=== PATIENT | male | born 1955 | race Caucasian/White ===

== ENCOUNTER 2022-02-12 12:51 | Observation (INO) | payer OTHER, SELFPAY ==
[2022-02-12] VITALS (28 sets, daily range): BP systolic 153–192; BP diastolic 66–120; PULSE 65–93; RESP 12–20; TEMP 36.7–37.2; O2SAT 82–100; BMI 31.6
--- NOTE | ~2022-02-12 | XR_ITS ---
EXAMINATION: XR chest 1V portable DATE: 02/12/2022 13:55 INDICATION: Cough. Syncope. TECHNIQUE: A single frontal view of the chest was obtained. COMPARISON: None. FINDINGS: The chest demonstrates clear lungs without pneumonia, pleural effusion, or pneumothorax. Th e heart size is normal. IMPRESSION: 1. No acute cardiopulmonary disease. Reviewed, dictated and finalized at location A.
--- NOTE | ~2022-02-12 | US_ITS ---
EXAMINATION: US carotid duplex BI DATE: 02/13/2022 10:10 INDICATION: Syncope. TECHNIQUE: Grayscale, color Doppler, and pulsed Doppler images of the cervical carotid arteries were obtained. The degree of vessel stenosis is placed in one of the following categories: normal, <50%, 5 0-69%, >=70% but less than near-occlusion, near-occlusion, or total occlusion. Note that percent sten osis relative to normal distal artery lumen diameter is indirectly measured from velocity measurement s as described by Mike, et al. Radiology 2003; 229:340-346. COMPARISON: None. FINDINGS: RIGHT: The right common carotid artery (CCA) peak systolic velocity (PSV) is 122 cm/s. The right internal ca rotid artery (ICA) PSV is 194 cm/s. The right ICA end-diastolic velocity (EDV) is 57 cm/s. The right ICA/CCA PSV ratio is 1.6. Grayscale and color Doppler images yield an estimate of >=50% diameter redu ction from plaque in the ICA. There is antegrade flow in the right vertebral artery. LEFT: The left CCA PSV is 168 cm/s. The left ICA PSV is 140 cm/s. The left ICA EDV is 20 cm/s. The left ICA /CCA PSV ratio is <1. Grayscale and color Doppler images yield an estimate of >=50% diameter reductio n from plaque in the ICA. There is antegrade flow in the left vertebral artery. IMPRESSION: 1. 50-69% stenosis in the right internal carotid artery. 2. 50-69% stenosis in the left internal carotid artery. Reviewed, dictated and finalized at location A.
--- NOTE | ~2022-02-12 | CT_ITS ---
EXAMINATION: CT brain wo con DATE: 02/12/2022 14:10 INDICATION: Syncope. Head injury. Headache. TECHNIQUE: Computed tomography (CT) of the head was performed without intravenous contrast. The mA wa s adjusted according to patient size. Iterative reconstruction technique was employed. The dose-lengt h product was 605.33 mGy-cm. COMPARISON: None FINDINGS: There are scattered areas of low attenuation in the cerebral white matter, which is within normal limits for the patient's age. There is no intracranial hemorrhage, acute infarction, or abnorm al intracranial mass lesion. The ventricles are normal in size. There is mild mucosal thickening in t he paranasal sinuses. The mastoid air cells are normal. There is cerumen in the external auditory can als. There are likely changes of ocular lens replacement surgeries. IMPRESSION: 1. Normal aging brain. Reviewed, dictated and finalized at location A. IMPRESSION: 1. Normal aging brain.
--- NOTE | ~2022-02-12 | CT_ITS ---
EXAMINATION: CT cervical spine wo con DATE: 02/12/2022 14:12 INDICATION: Head injury. TECHNIQUE: Computed tomography (CT) of the cervical spine was performed without intravenous contrast. Automated exposure control and iterative reconstruction technique were employed. The dose-length pro duct was 553.69 mGy-cm. COMPARISON: None FINDINGS: There is 5 degrees levocurvature of cervical spine. Vertebral body heights and intervertebr al disc heights are normal. The following disc levels are specifically discussed: C2-C3: There is mild left uncovertebral joint osteoarthritis. There is mild bilateral facet joint ost eoarthritis. There is no neural foraminal stenosis. There is no central canal stenosis. C3-C4: There is mild bilateral uncovertebral joint osteoarthritis. There is no facet joint osteoarthr itis. There is no neural foraminal stenosis. There is no central canal stenosis. C4-C5: There is mild bilateral uncovertebral joint osteoarthritis. There is mild bilateral facet join t osteoarthritis. There is mild bilateral neural foraminal stenosis. There is mild central canal sten osis. C5-C6: There is mild bilateral uncovertebral joint osteoarthritis. There is no facet joint osteoarthr itis. There is mild right neural foraminal stenosis. There is mild central canal stenosis. C6-C7: There is no uncovertebral joint osteoarthritis. There is mild bilateral facet joint osteoarthr itis. There is no neural foraminal stenosis. There is no central canal stenosis. C7-T1: There is no uncovertebral joint osteoarthritis. There is mild bilateral facet joint osteoarthr itis. There is no neural foraminal stenosis. There is no central canal stenosis. IMPRESSION: 1. No fracture. 2. Mild cervical spondylosis. Reviewed, dictated and finalized at location A.
--- NOTE | 2022-02-12 12:59 | ECG_ITS ---
Measurements Intervals [place] Rate: 68 P: 57 AR: 167 QRS: -83 QRSD: 171 T: 116 QT: 440 QTc: 470 Interpretive Statements SINUS RHYTHM POSSIBLE LEFT ATRIAL ENLARGEMENT RIGHT BUNDLE BRANCH BLOCK LEFT ANTERIOR FASCICULAR BLOCK ANTEROSEPTAL INFARCT, AGE INDETERMINATE INFERIOR INFARCT, AGE INDETERMINATE ST-T WAVE ABNORMALITY IN HIGH LATERAL LEADS- CONSIDER ISCHEMIA ABNORMAL ECG NO PREVIOUS ECG AVAILABLE FOR COMPARISON Electronically Signed On 02-12-2022 13:46:07 CDT by Berto Painting D.O.
[2022-02-12 13:07] LABS: Basophils Absolute Auto 0.1 K/mm3 (0.0-0.1); Basophils Percent Auto 0.6 % (0.2-1.2); Eosinophils Absolute Auto 0.5 K/mm3 (0-0.3); Eosinophils Percent Auto 3.8 % (0-4.4); Hematocrit 44.9 % (42.0-52.0); Hemoglobin 14.6 g/dL (14.0-18.0); Immature Granulocyte Absolute 0.07 K/mm3 (0.00-0.031); Immature Granulocyte Percent A 0.6 % (0-0.5); Lymphocytes Absolute Auto 1.56 K/mm3 (0.9-3.2); Lymphocytes Percent Auto 12.8 % (18.3-44.2); Mean Corpuscular HGB Conc 32.5 g/dl (32-36); Mean Corpuscular Hemoglobin 28.8 pg (26-34); Mean Corpuscular Volume 88.6 fl (80-100); Mean Platelet Volume 9.9 fl (7.4-10.4); Monocytes Absolute Auto 1.1 K/mm3 (0.1-0.6); Monocytes Percent Auto 8.8 % (2.6-8.5); Neutrophils Percent Auto 73.4 % (45.5-73.1); Platelet Count Result 289 k/mm3 (150-375); Red Blood Count 5.07 M/mm3 (4.6-6.20); White Blood Count 12.2 K/mm3 (4.5-10.0)
[2022-02-12 13:29] LABS: Alanine Aminotransferase 19 U/L (6-50); Albumin Level 3.9 g/dL (3.5-5.1); Alkaline Phosphatase 133 U/L (38-126); Anion Gap 13 mmol/L (8-16); Aspartate Amino Transferase 24 U/L (17-59); Bilirubin,Total 0.4 mg/dL (0.2-1.3); Blood Urea Nitrogen 44 mg/dL (9-20); Calcium 8.5 mg/dL (8.4-10.2); Carbon Dioxide 21 mmol/L (22-30); Chloride 106 mmol/L (98-107); Estimated CRCL calculation 29 ml/min; Estimated Glomerular Filt Rate 20; Glucose 292 mg/dL (65-110); Potassium 6.6 mmol/L (3.4-5.0); Sodium 140 mmol/L (137-145)
[2022-02-12] MEDS: ALBUTEROL SULFATE NEB 2.5 MG/3 ML INH 5 MG INHALATION (13:49)
[2022-02-12] MEDS: SODIUM POLYSTYRENE SULFONONATE 15 GM/60 ML BTL 30 GM PO (13:53)
[2022-02-12] MEDS: CALCIUM GLUC 1,000 MG/NS 100ML 1,000 MG/100 ML BAG 200 MG IVPB (13:54)
[2022-02-12] MEDS: DEXTROSE 50% 25 GM/50 ML SYRINGE IV PUSH (13:54)
[2022-02-12] MEDS: INSULIN HUMAN REGULAR (*BKC) 100 UNITS/ML 10 UNITS IV PUSH (13:55)
[2022-02-12] MEDS: SODIUM BICARBONATE 8.4% 50 MEQ/50 ML SYRINGE IV PUSH (13:55)
[2022-02-12 14:23] LABS: NT Pro B Type Natriuretic Pept 8440 pg/mL (5-100); Troponin I 0.063 ng/mL (0.000-0.034)
[2022-02-12 14:29] LABS: SARS-CoV-2 RNA PCR Negative
[2022-02-12] MEDS: SODIUM CHLORIDE 0.9% IV 500 ML 999 ML IV CONT (14:46)
--- NOTE | 2022-02-12 14:59 | ED.SYNCOPE ---
HPI - Syncope General Chief Complaint: Syncope Stated Complaint: syncope with HI Time Seen by Provider: 02/12/22 13:00 Source: patient and RN notes reviewed Mode of arrival: EMS Limitations: no limitations History of Present Illness HPI narrative: This is a 66 year old male with history of hypertension, CAD, chronic kidney disease with hyperkalemia who presents for evaluation of syncopal episode. Patient states he had just gotten out of his car to walk into gas station and he developed cramping in his thighs. He then felt lightheaded and he passed out hitting his head. He reports he has cramping frequently when he has elevated potassium. He denies preceding palpitations, chest pain , nausea or shortness of breath prior to his syncopal episode. He has mild headache and mild neck pain. He denies focal weakness. His codifier is Dr. Bere Issa. He has been off his lasix for 1 week and he states he only takes as needed. He was going to start taking today because he has mild cough for 2 days. He denies leg swellling. Related Data Home Medications Medication Instructions Recorded Confirmed amlodipine 5 mg tablet 5 mg PO BID 02/12/22 02/12/22 aspirin 325 mg tablet 325 mg PO DAILY 02/12/22 02/12/22 atorvastatin 10 mg tablet 10 mg PO DAILY 02/12/22 02/12/22 clonidine HCl 0.2 mg tablet 0.2 mg PO BID 02/12/22 02/12/22 clopidogrel 75 mg tablet 75 mg PO DAILY 02/12/22 02/12/22 furosemide 40 mg tablet 40 mg PO DAILY 02/12/22 02/12/22 isosorbide mononitrate 60 mg 60 mg PO DAILY 02/12/22 02/12/22 tablet,extended release 24 hr nebivolol 20 mg tablet 20 mg PO HS 02/12/22 02/12/22 nitroglycerin 0.4 mg sublingual 0.4 mg sublingual Q5MIN PRN Chest 02/12/22 02/12/22 tablet Pain selenium sulfide 2.5 % lotion 2.5 applic topical DAILY PRN Dry 02/12/22 02/12/22 Skin Allergies Allergy/AdvReac Type Severity Reaction Status Date / Time No Known Allergies Allergy Verified 02/12/22 13:00 Review of Systems Review of Systems: All systems reviewed & are unremarkable except as noted in HPI and below Constitutional: Constitutional: Denies chills, Denies fatigue and Denies fever(s) Eyes: Eyes: Denies change in vision ENT: Denies nasal congestion Cardiovascular: Cardiovascular: Denies chest pain and Denies rapid heart rate Respiratory: Respiratory: Denies chest congestion, Reports cough and Denies dyspnea Gastrointestinal: Gastrointestinal: Denies abdominal pain, Denies nausea and Denies vomiting Musculoskeletal: Musculoskeletal: Reports muscle cramps Neurologic: Reports syncope, Reports headache(s), Denies focal weakness and Denies numbness PMFSH Past Medical History Medical History (Updated 02/12/22 @ 15:16 by Layla Preciado MD) CAD (coronary artery disease) Chronic kidney disease Hyperkalemia Hypertension Surgical History Surgical History (Updated 02/12/22 @ 15:06 by Layla Preciado MD) H/O cardiac catheterization Social History Social History (Updated 02/12/22 @ 15:07 by Layla Preciado MD) Smoking status: Never smoker Alcohol intake: never Substance use: never Spiritual care concerns: No Exam Const: General: no acute distress and alert Nutritional Appearance: well nourished Orientation/consciousness: patient oriented x3 Limitations: no limitations HENMT: Head: normal to inspection Face and sinus: normal facial exam Mouth: Yes Normal oral and palatal mucosa present, Yes lip normal and Yes moist mucous membranes Throat: posterior oropharynx normal Eyes: Pupils: Equal, round and reactive pupils present EOM: EOMs intact bilaterally Neck: Neck: normal visual inspection Chest: Chest palpation & inspection: normal inspection of the chest Resp: Effort & Inspection: normal respiratory effort Auscultation: clear to auscultation bilaterally Cardio: Rate: regular rate Rhythm: regular rhythm Heart sounds: no murmurs GI: GI Palp: Yes Soft to palpation, No Tenderness to pa
[2022-02-12] MEDS: SODIUM CHLORIDE 0.9% IV 1,000 ML 150 ML IV CONT (16:17)
--- NOTE | 2022-02-12 16:28 | PC.NURSE ---
This patient, Reza David, was admitted to IMU Room 200-01. Patient/family oriented to hospital policies and general routines including ID bracelet, bed and alarms, visiting hours, pain management, procedures, bathroom and other care routines, personal items, smoking policy, room service/diet, and visiting hours. Information on how to activate the Rapid Response Team has been discussed. Patient/Family are encouraged to report perceived risks to care and to ask questions if they do not understand what they are told or what they should do.
--- NOTE | 2022-02-12 17:00 | PM.IMHP ---
H&P: HPI History of Present Illness Date/Time: 02/12/22 17:00 Chief Complaint: Syncope. Narrative: This is a very pleasant 66-year-old with chronic kidney disease, hypertension, hyperlipidemia, and coronary artery disease who presented to the emergency department via EMS for evaluation after a syncopal episode. He had been out camping and today he was returning home. He stopped at a local gas station and when he got out of the car he had significant cramping in his thighs which does happen from time to time. He made his way to the station and while walking he started to feel weak, lightheaded, and dizzy. He briefly lost consciousness and fell to the ground, landing on his back and striking the right side of his head on the concrete. It does not sound as though it is unusual for him to have feelings of lightheadedness and dizziness upon going from a seated to standing position however he has never lost consciousness before. In fact just last week he had a similar episode and at that time he checked his blood pressure which was reportedly 90/56 which is very low for him. His vital signs were stable on arrival to the emergency department and his blood pressure has been in the 150s to 180 systolic. Labs done upon arrival were significant for potassium of 6.6, BUN 44, creatinine 3.10, and troponin 0.063. He received appropriate treatment for the hyperkalemia and he is being admitted overnight for closer monitoring. With further questioning he reports having issues with hyperkalemia in the past and his baseline GFR is typically 20 and 21%. He has never been diagnosed with orthostatic hypotension and his blood pressures are typically at the higher end of normal if not more. At the time my evaluation he is resting comfortably and he has been able to get up to the bathroom without any issues. He denies vertigo, focal weakness, paresthesias, visual changes, chest pain, pleuritic pain, shortness a breath, vomiting, diarrhea, and dysuria. Review of Systems Review of Systems: Twelve systems were reviewed and are negative except for as per HPI. [facility] Past Medical History Medical History (Updated 02/12/22 @ 18:19 by Melissa Mortensen PA-C) Cerebrovascular accident (2018) Chronic kidney disease Coronary artery disease Gastroesophageal reflux disease Hyperkalemia Hyperlipidemia Hypertension Obstructive sleep apnea Spinal stenosis Tinea versicolor Transient ischemic attack Vocal cord paralysis Surgical History Surgical History (Updated 02/12/22 @ 18:17 by Melissa Mortensen PA-C) History of cardiac catheterization History of cholecystectomy History of coronary artery stent placement History of renal stent History of vitrectomy Family History Family History Sibling Acute myocardial infarction Multiple sclerosis Mother Diabetes mellitus Hypertension Father Hypertension Congestive heart failure Social History Social History Social History: Surrogate medical decision maker: Cielo David, spouse. Code status: Full code. Smoking status: Never smoker Alcohol intake: never Substance use: never Spiritual care concerns: No Meds Home Medications and Allergies Home Medications Medication Instructions Recorded Confirmed Type amlodipine 5 mg tablet 5 mg PO BID 02/12/22 02/12/22 History aspirin 325 mg tablet 325 mg PO DAILY 02/12/22 02/12/22 History atorvastatin 10 mg tablet 10 mg PO DAILY 02/12/22 02/12/22 History clonidine HCl 0.2 mg tablet 0.2 mg PO BID 02/12/22 02/12/22 History clopidogrel 75 mg tablet 75 mg PO DAILY 02/12/22 02/12/22 History furosemide 40 mg tablet 40 mg PO DAILY 02/12/22 02/12/22 History insulin glargine 100 unit/mL (3 45 unit subcut Q12H 02/12/22 02/12/22 History mL) subcutaneous pen (Lantus Solostar U-100 Insulin) isosorbide mononitrate 60 mg 60 mg PO DAILY 02/12/22
[2022-02-12 17:35] LABS: Anion Gap 9 mmol/L (8-16); Blood Urea Nitrogen 42 mg/dL (9-20); Calcium 9.1 mg/dL (8.4-10.2); Carbon Dioxide 22 mmol/L (22-30); Chloride 110 mmol/L (98-107); Estimated CRCL calculation 30 ml/min; Estimated Glomerular Filt Rate 21; Glucose 159 mg/dL (65-110); Potassium 5.1 mmol/L (3.4-5.0); Sodium 141 mmol/L (137-145)
[2022-02-12 17:50] LABS: Troponin I 0.062 ng/mL (0.000-0.034)
[2022-02-12 17:54] LABS: Glucose Point of Care 140 mg/dl (65-105)
[2022-02-12] MEDS: NEBIVOLOL HCL 5 MG TABLET 20 MG PO (20:04)
[2022-02-12 20:30] LABS: Glucose Point of Care 145 mg/dl (65-105)
[2022-02-12] MEDS: ACETAMINOPHEN 325 MG TABLET 650 MG PO (21:16)
[2022-02-12] MEDS: amLODIPine BESYLATE 5 MG TABLET PO (21:17)
[2022-02-12] MEDS: cloNIDine HCL 0.2 MG TABLET PO (21:17)
--- NOTE | 2022-02-12 21:35 | PC.NURSE ---
Patient refuses bed alarm. He understands he is a high fall risk due to syncopal episode. Pt states he will only stand at the side of bed to urinate and will sit down and call if he becomes dizzy.
[2022-02-12] MEDS: INSULIN GLARGINE (*BKC) 100 UNITS/ML 45 UNITS SUB-Q (22:35)
--- NOTE | 2022-02-12 23:21 | PM.CNNEP ---
Assessment and Plan Assessment and plan (1) Hyperkalemia: Code(s): E87.5 - Hyperkalemia Status: Acute (2) Coronary artery disease: Code(s): I25.10 - Atherosclerotic heart disease of [place] coronary artery without angina pectoris Status: Acute (3) Hypertension: Code(s): I10 - Essential (primary) hypertension Status: Acute (4) Chronic kidney disease: Code(s): N18.9 - Chronic kidney disease, unspecified Status: Acute (5) CHI (closed head injury): Code(s): S09.90XA - Unspecified injury of head, initial encounter Status: Acute (6) Acute hyperkalemia: Code(s): E87.5 - Hyperkalemia Status: Acute Plan 1. PT WAS PREVIOUSLY TAKEN OFF ARB-LOSARTAN AND LUIS-INHIBITORS B/C OF SEVERE HIGH POTASSIUM. HE IS VERY NON-COMPLIANT WITH HIS DIET DESPITE MULTIPLE ISSUES WITH HYPERKALEMIA- HE LIKES MILK OJ, RED PIZZA SAUCE. 2. CONT IVF HYDRATION. 3. PRN IV LASIX. 4. NO ARB/ LUIS INHIBITORS FOR NOW. History of Present Illness Reason for Consult Consult date: 02/12/22 Chief Complaint Chief complaint: Syncope/Hyperkalemia with Chronic Kidney Disease History of Present Illness Narrative: 66 yo WM with CKD IV c/o by hyperkalemia, dm2, htn, cad, pad come sin with leg dramping and was found to have high potassium level of 6.6. Pt has known problem with hyperkalemia and in fact is supposed to be taking potassium binder- [place]- VELTASSA Review of Systems Constitutional: Comments: CRAMPING IN LEGS AND FEET PMFSH Past Medical History Medical History (Updated 02/12/22 @ 18:19 by Melissa Mortensen PA-C) Cerebrovascular accident (2018) Chronic kidney disease Coronary artery disease Gastroesophageal reflux disease Hyperkalemia Hyperlipidemia Hypertension Obstructive sleep apnea Spinal stenosis Tinea versicolor Transient ischemic attack Vocal cord paralysis Surgical History Surgical History (Updated 02/12/22 @ 18:17 by Melissa Mortensen PA-C) History of cardiac catheterization History of cholecystectomy History of coronary artery stent placement History of renal stent History of vitrectomy Family History Family History Sibling Acute myocardial infarction Multiple sclerosis Mother Diabetes mellitus Hypertension Father Hypertension Congestive heart failure Social History Social History Social History: Surrogate medical decision maker: Cielo David, spouse. Code status: Full code. Smoking status: Never smoker Alcohol intake: never Substance use: never Spiritual care concerns: No Meds Home Medications and Allergies Home Medications Medication Instructions Recorded Confirmed Type amlodipine 5 mg tablet 5 mg PO BID 02/12/22 02/12/22 History aspirin 325 mg tablet 325 mg PO DAILY 02/12/22 02/12/22 History atorvastatin 10 mg tablet 10 mg PO DAILY 02/12/22 02/12/22 History clonidine HCl 0.2 mg tablet 0.2 mg PO BID 02/12/22 02/12/22 History clopidogrel 75 mg tablet 75 mg PO DAILY 02/12/22 02/12/22 History furosemide 40 mg tablet 40 mg PO DAILY 02/12/22 02/12/22 History insulin glargine 100 unit/mL (3 45 unit subcut Q12H 02/12/22 02/12/22 History mL) subcutaneous pen (Lantus Solostar U-100 Insulin) isosorbide mononitrate 60 mg 60 mg PO DAILY 02/12/22 02/12/22 History tablet,extended release 24 hr nebivolol 20 mg tablet 20 mg PO HS 02/12/22 02/12/22 History nitroglycerin 0.4 mg sublingual 0.4 mg sublingual Q5MIN PRN Chest 02/12/22 02/12/22 History tablet Pain selenium sulfide 2.5 % lotion 2.5 applic topical DAILY PRN Dry 02/12/22 02/12/22 History Skin Allergies Allergy/AdvReac Type Severity Reaction Status Date / Time No Known Allergies Allergy Verified 02/12/22 13:00 Vital Signs Vital Signs - 24 hr 02/12/22 12:56 02/12/22 13:50 02/12/22 14:00 Temperature 36.7 C Pulse Rate
[2022-02-12] MEDS: SODIUM CHLORIDE 0.9% IV 1,000 ML 100 ML IV CONT (23:42)
[2022-02-13] VITALS (9 sets, daily range): BP systolic 150–192; BP diastolic 73–90; PULSE 74–98; RESP 18–22; TEMP 36.6–37.2; O2SAT 96–99
[2022-02-13 04:56] LABS: Alanine Aminotransferase 16 U/L (6-50); Albumin Level 3.1 g/dL (3.5-5.1); Alkaline Phosphatase 115 U/L (38-126); Anion Gap 12 mmol/L (8-16); Aspartate Amino Transferase 18 U/L (17-59); Bilirubin,Total 0.3 mg/dL (0.2-1.3); Blood Urea Nitrogen 33 mg/dL (9-20); Calcium 7.8 mg/dL (8.4-10.2); Carbon Dioxide 22 mmol/L (22-30); Chloride 109 mmol/L (98-107); Estimated CRCL calculation 33 ml/min; Estimated Glomerular Filt Rate 24; Glucose 148 mg/dL (65-110); Magnesium 1.8 mg/dL (1.6-2.3); Potassium 4.4 mmol/L (3.4-5.0); Sodium 143 mmol/L (137-145)
[2022-02-13 08:22] LABS: Glucose Point of Care 119 mg/dl (65-105)
--- NOTE | 2022-02-13 09:55 | PM.PNNEP ---
Progress Note: A&P Assessment and Plan (1) Coronary artery disease: Code(s): I25.10 - Atherosclerotic heart disease of [place] coronary artery without angina pectoris Status: Acute (2) Hypertension: Code(s): I10 - Essential (primary) hypertension Status: Acute (3) Closed head injury: Code(s): S09.90XA - Unspecified injury of head, initial encounter Status: Acute (4) Chronic kidney disease: Code(s): N18.9 - Chronic kidney disease, unspecified Status: Acute (5) Hyperkalemia: Code(s): E87.5 - Hyperkalemia Status: Acute (6) Obstructive sleep apnea: Code(s): G47.33 - Obstructive sleep apnea (adult) (pediatric) Status: Acute (7) Hyperlipidemia: Code(s): E78.5 - Hyperlipidemia, unspecified Status: Acute (8) Syncope: Code(s): R55 - Syncope and collapse Status: Acute (9) CHI (closed head injury): Code(s): S09.90XA - Unspecified injury of head, initial encounter Status: Acute (10) Acute hyperkalemia: Code(s): E87.5 - Hyperkalemia Status: Acute Plan 1. needs PT assessment 2. reconsult with nutrition- he is still eating BANANAS AND OJ despite numerous lists being given on potassium avoidance. 3. lower clonidine down to 0.1 mg bid 4. pt also says his blood sugars have been going low overnight and in am - howevere when i asked him they have only beeing average 126- rare < 70. he then he says he likes having the low blood sugar so he can eat more cheat meals. note pt has been orthostatic for years- this is not new. i will lower the Clonidine and IVFS. i THINK HE COULD GO HOME IF HE IS FEELING BETTER HIS POTASSIUM IS LOWER. Time Spent With Patient Time: 25mins Subjective Date/time seen: 02/13/22 07:25- pt says he has a knot on the back of his head after falling backwards. he said he did have a LOC. Also reports his gait is off and he has been dizzy upon standing. Exam HENMT: Head: contusion (contusion on back/mid top of scalp without bleeding or open cut-wound) and other Neck: Other: no carotid bruits Resp: Auscultation: clear to auscultation bilaterally Cardio: Rhythm: regular rhythm Extrem: Other: no c/c/e Objective Data Vital Signs Vital Signs: Vital Signs - 24 hr 02/12/22 12:56 02/12/22 13:50 02/12/22 14:00 Temperature 36.7 C Pulse Rate 69 66 70 Respiratory Rate 20 12 17 Blood Pressure 176/89 H Pulse Oximetry 99 Oxygen Delivery Room Air 02/12/22 13:01 02/12/22 13:02 02/12/22 13:37 Temperature Pulse Rate 66 67 65 Respiratory Rate 19 18 14 Blood Pressure 170/77 H Pulse Oximetry 98 99 100 Oxygen Delivery 02/12/22 13:58 02/12/22 14:01 02/12/22 14:02 Temperature Pulse Rate 66 70 74 Respiratory Rate 13 17 17 Blood Pressure 163/74 H 169/66 H Pulse Oximetry 100 100 100 Oxygen Delivery 02/12/22 14:17 02/12/22 14:30 02/12/22 14:47 Temperature Pulse Rate 92 93 93 Respiratory Rate 18 18 15 Blood Pressure 171/92 H Pulse Oximetry 99 99 100 Oxygen Delivery 02/12/22 14:48 02/12/22 15:00 02/12/22 15:01 Temperature Pulse Rate 93 92 91 Respiratory Rate 18 19 20 Blood Pressure 177/85 H Pulse Oximetry 100 100 82 L Oxygen Delivery 02/12/22 15:24 02/12/22 15:31 02/12/22 15:35 Temperature Pulse Rate 88 84 Respiratory Rate 19 Blood Pressure 153/120 H Pulse Oximetry 100 99 99 Oxygen Delivery 02/12/22 16:30 02/12/22 16:26 02/12/22 16:03 Temperature 36.9 C Pulse Rate 85 85 Respiratory Rate 16 Blood Pressure 185/94 H Pulse Oximetry 100 Oxygen Delivery Room Air 02/12/22 18:00 02/12/22 19:51 02/12/22 19:55 Temperature 37.0 C Pulse Rate 88 87 Respiratory Rate 18 Blood Pressure 179/84 H 184/86 H Pulse Oximetry 98 Oxygen Delivery 02/12/22 19:51 02/12/22 19:51 02/12/22 20:04 Temperature Pulse Rate 89 Respiratory Rate Blood Pressure 156/87 H 181/85 H Pu
[2022-02-13] MEDS: SODIUM CHLORIDE 0.9% IV 1,000 ML 50 ML IV CONT (10:52)
[2022-02-13] MEDS: cloNIDine HCL 0.1 MG TABLET PO (10:54)
[2022-02-13] MEDS: ASPIRIN 325 MG TABLET PO (10:54)
[2022-02-13] MEDS: ATORVASTATIN 10 MG TABLET PO (10:55)
[2022-02-13] MEDS: FUROSEMIDE 40 MG TABLET PO (10:55)
[2022-02-13] MEDS: amLODIPine BESYLATE 5 MG TABLET PO (10:55)
[2022-02-13] MEDS: CLOPIDOGREL BISULFATE 75 MG TABLET PO (10:55)
[2022-02-13] MEDS: INSULIN GLARGINE (*BKC) 100 UNITS/ML 45 UNITS SUB-Q (11:00)
[2022-02-13 12:08] LABS: Glucose Point of Care 196 mg/dl (65-105)
--- NOTE | 2022-02-13 13:31 | PM.DS ---
DS: Admitting Diagnosis Discharge Date 02/13/2022 Admitting Diagnosis syncopal episode hyperkalemia DS: Discharge Diagnosis Discharge Diagnosis (1) Syncope: Code(s): R55 - Syncope and collapse Status: Acute Assessment and Plan: Suspicious for orthostatic hypotension however I suppose he could of had a vasovagal syncope related to pain due to significant cramping in his thighs. Cardiac dysrhythmia is also a possibility given hyperkalemia on arrival. He will be monitored on telemetry overnight. Echocardiogram and carotid Doppler ultrasounds have been ordered for further evaluation. Initiate fall precautions and monitor orthostatic vital signs. (2) Hyperkalemia: Code(s): E87.5 - Hyperkalemia Status: Acute Assessment and Plan: Patient reports that he has had issues with hyperkalemia in the past. He received appropriate treatment in the emergency department and repeat potassium is down to 5.1. Repeat electrolytes in a.m. (3) Chronic kidney disease: Code(s): N18.9 - Chronic kidney disease, unspecified Status: Acute Assessment and Plan: Patient reports baseline GFR of 20 to 21%, seems to be a baseline. (4) Closed head injury: Code(s): S09.90XA - Unspecified injury of head, initial encounter Status: Acute Assessment and Plan: No acute issues noted on brain CT. Monitor neurologic checks. (5) Hypertension: Code(s): I10 - Essential (primary) hypertension Status: Acute Assessment and Plan: Blood pressures have been running in the 150s to 170 systolic. Continue antihypertensives and monitor closely. (6) Obstructive sleep apnea: Code(s): G47.33 - Obstructive sleep apnea (adult) (pediatric) Status: Acute Assessment and Plan: CPAP will be provided for the patient to use while hospitalized. (7) Coronary artery disease: Code(s): I25.10 - Atherosclerotic heart disease of [place] coronary artery without angina pectoris Status: Acute Assessment and Plan: Troponin was mildly elevated however he is not having any chest pain nor does his EKG show any acute changes. Unlikely that he has had a cardiac event though we will trend troponins. Continue dual anti-platelet therapy, beta-pasacle, and statin. DS: Summary Hospital Course Reason for hospitalization: Narrative: This is a very pleasant 66-year-old with chronic kidney disease, hypertension, hyperlipidemia, and coronary artery disease who presented to the emergency department via EMS for evaluation after a syncopal episode. He had been out camping and today he was returning home. He stopped at a local gas station and when he got out of the car he had significant cramping in his thighs which does happen from time to time. He made his way to the station and while walking he started to feel weak, lightheaded, and dizzy. He briefly lost consciousness and fell to the ground, landing on his back and striking the right side of his head on the concrete. It does not sound as though it is unusual for him to have feelings of lightheadedness and dizziness upon going from a seated to standing position however he has never lost consciousness before. In fact just last week he had a similar episode and at that time he checked his blood pressure which was reportedly 90/56 which is very low for him. His vital signs were stable on arrival to the emergency department and his blood pressure has been in the 150s to 180 systolic. Labs done upon arrival were significant for potassium of 6.6, BUN 44, creatinine 3.10, and troponin 0.063. He received appropriate treatment for the hyperkalemia and he is being admitted overnight for closer monitoring. With further questioning he reports having issues with hyperkalemia in the past and his baseline GFR is typically 20 and 21%. He has never been diagnosed with orthostatic hypotension and his blood pressures are typically at the higher end of
== END 2022-02-13 16:00 | disposition home or self-care (01) ==
LOC: ANHED 15:16 → ANHIMU 17:07
PROVIDERS: Physician Assistant; Admitting Provider Family Medicine; Emergency Provider General Practice; Visit Provider Family Medicine
DX: R55 Syncope and collapse (principal); S09.90XA Unspecified injury of head, initial encounter; I25.10 Atherosclerotic heart disease of native coronary artery without angina pectoris; Z95.5 Presence of coronary angioplasty implant and graft; E87.5 Hyperkalemia; M47.812 Spondylosis without myelopathy or radiculopathy, cervical region; I12.9 Hypertensive chronic kidney disease with stage 1 through stage 4 chronic kidney disease, or unspecified chronic kidney disease; Z96.0 Presence of urogenital implants; E78.5 Hyperlipidemia, unspecified; N18.9 Chronic kidney disease, unspecified; K21.9 Gastro-esophageal reflux disease without esophagitis; I45.2 Bifascicular block; R94.31 Abnormal electrocardiogram [ECG] [EKG]; G47.33 Obstructive sleep apnea (adult) (pediatric); I73.9 Peripheral vascular disease, unspecified; I77.9 Disorder of arteries and arterioles, unspecified; Z20.822 Contact with and (suspected) exposure to COVID-19; Z86.73 Personal history of transient ischemic attack (TIA), and cerebral infarction without residual deficits; Z79.82 Long term (current) use of aspirin; Z79.02 Long term (current) use of antithrombotics/antiplatelets; Z79.899 Other long term (current) drug therapy; Z82.49 Family history of ischemic heart disease and other diseases of the circulatory system
CPT/HCPCS: 36415; 70450; 71045; 72125; 80048; 80053; 82948; 83735; 83880; 84484; 85025; 93005; 93880; 94640; 96361; 96365; 96375; 99285; A9270; C9803; G0378; J0610; J1815; J7030; J7040; U0003; U0005